=== PATIENT | female | born 1935 | race African-American/Black ===

== ENCOUNTER 2022-06-29 12:43 | Emergency (ER) | payer OTHER ==
[~2022-06-29] VITALS: Ht 157.5 cm; Wt 56.0 kg
[2022-06-29] MEDS ORDERED: LEFL10TA19 PO (12:50)
[2022-06-29] MEDS ORDERED: ONDANSETRON HCL 4MG/2ML INJ IV STA (13:06)
[2022-06-29] MEDS ORDERED: ACETAMINOPHEN 325MG TABLET PO STA (13:06)
[2022-06-29] MEDS ORDERED: SODIUM CHLORIDE 0.9% 1,000 ML IV ONE (13:15)
[2022-06-29 14:04] LABS: BASOPHILS % 1.1 % (0.0-2.0); EOSINOPHILS % 2.4 % (0.0-5.0); HEMATOCRIT. 29.8 % (36.0-48.0); HEMOGLOBIN. 9.8 g/dL (12.0-16.0); LYMPHOCYTES % 25.2 % (20.0-50.0); MEAN CORPUSCULAR HEMOGLOBIN 30.4 pg (28.0-32.0); MEAN CORPUSCULAR VOLUME 92.4 fL (81.0-99.0); MEAN PLATELET VOLUME 9.6 fl (7.4-10.4); MONOCYTES % 11.3 % (2.0-8.0); PLATELET 131 x1000/uL (130-400); RED BLOOD CELL COUNT 3.22 mill/uL (4.2-5.4); RED CELL DISTRIBUTION WIDTH 20.8 % (11.6-14.6)
[2022-06-29 14:11] LABS: CHLORIDE 116 mEq/L (98-107)
[2022-06-29 14:30] LABS: INR 1.2; PROTHROMBIN TIME 12.4 sec (9.6-11.0)
[2022-06-29] MEDS ORDERED: POTASSIUM CHLORIDE 20MEQ TABLET SR PO ONE (14:30)
[2022-06-29 15:24] LABS: CLARITY URINE CLOUDY (CLEAR); COLOR URINE YELLOW (YELLOW); KETONES URINE TRACE (NEGATIVE); LEUKOCYTE ESTERASE URINE 1+ (NEGATIVE); NITRITE URINE NEGATIVE (NEGATIVE); OCCULT BLOOD URINE NEGATIVE (NEGATIVE); PROTEIN URINE 1+ (NEGATIVE); SPECIFIC GRAVITY URINE 1.016 (1.005-1.030); UROBILINOGEN URINE 0.2 E.U./dL (0.2-1.0)
[2022-06-29 19:52] VITALS: BP 111/62
== END 2022-06-29 20:19 | disposition home or self-care (01) ==
LOC: ER 12:54
DX: R10.84 Generalized abdominal pain (principal); E16.2 Hypoglycemia, unspecified; R11.2 Nausea with vomiting, unspecified; Z86.73 Personal history of transient ischemic attack (TIA), and cerebral infarction without residual deficits; Z88.0 Allergy status to penicillin
CPT/HCPCS: 36415; 71045; 74176; 80053; 81003; 82962; 83605; 83690; 84484; 85025; 85610; 96361; 96374; 99285; J2405; J7030

== ENCOUNTER 2022-07-28 16:30 | Emergency (ER) | payer OTHER ==
[~2022-07-28] VITALS: Ht 162.6 cm; Wt 41.0 kg
[~2022-07-28 16:30] MED LIST: LEFL10TA19 PO
[2022-07-28] MEDS ORDERED: ACETAMINOPHEN 650MG SUPP PR STA (17:29)
[2022-07-28] MEDS ORDERED: SODIUM CHLORIDE 0.9% 1000ML BAG (SEPSIS BOLUS) IV ONE (17:30)
[2022-07-28] MEDS ORDERED: PIPERACILLIN/TAZ 3.375G PREMIX 50 ML IV ONE (17:30)
[2022-07-28] MEDS ORDERED: VANCOMYCIN 1G PREMIX 200 ML IV ONE (17:30)
[2022-07-28 18:01] LABS: BASOPHILS % 0.6 % (0.0-2.0); HEMOGLOBIN. 8.7 g/dL (12.0-16.0); MEAN CORPUSCULAR HEMOGLOBIN 31.1 pg (28.0-32.0); MEAN CORPUSCULAR VOLUME 93.5 fL (81.0-99.0); MEAN PLATELET VOLUME 9.6 fl (7.4-10.4); MONOCYTES % 8.3 % (2.0-8.0); NEUTROPHILS % 33.1 % (40.0-76.0); PLATELET 140 x1000/uL (130-400); RED BLOOD CELL COUNT 2.78 mill/uL (4.2-5.4); RED CELL DISTRIBUTION WIDTH 18.8 % (11.6-14.6)
[2022-07-28 18:11] LABS: CHLORIDE 111 mEq/L (98-107); INR 1.3; PROTHROMBIN TIME 13.7 sec (9.6-11.0)
[2022-07-28 21:10] LABS: CLARITY URINE CLEAR (CLEAR); COLOR URINE YELLOW (YELLOW); KETONES URINE TRACE (NEGATIVE); LEUKOCYTE ESTERASE URINE NEGATIVE (NEGATIVE); NITRITE URINE NEGATIVE (NEGATIVE); OCCULT BLOOD URINE NEGATIVE (NEGATIVE); PROTEIN URINE 1+ (NEGATIVE); SPECIFIC GRAVITY URINE 1.009 (1.005-1.030); UROBILINOGEN URINE 0.2 E.U./dL (0.2-1.0)
[2022-07-28] MEDS ORDERED: KCL 10MEQ/50ML PREMIX 100 ML IV SCH (22:30)
[2022-07-29 01:29] VITALS: BP 156/69
[2022-07-29] MEDS ORDERED: KCL 10MEQ/50ML PREMIX 100 ML IV SCH (02:30)
== END 2022-07-29 02:07 | disposition short-term general hospital (02) ==
LOC: ER 16:30 → EDBEDREQ 17:34 → ER 07-29 02:07 → CANBEDREQ 07-29 18:23
DX: E11.9 Type 2 diabetes mellitus without complications (principal); Z86.73 Personal history of transient ischemic attack (TIA), and cerebral infarction without residual deficits; R11.10 Vomiting, unspecified; Z20.822 Contact with and (suspected) exposure to COVID-19
CPT/HCPCS: 36415; 71045; 80053; 81003; 82962; 83605; 83690; 84484; 85025; 85610; 87040; 87426; 96360; 96361; 99285; C9803; J3480; J7030

== ENCOUNTER 2022-09-01 09:52 | Inpatient (IN) | payer OTHER ==
[~2022-09-01] VITALS: Ht 157.5 cm; Wt 67.1 kg
[2022-09-01] MEDS ORDERED: IOHEXOL-350 100 ML BOTTLE ONE (10:09)
[2022-09-01 11:32] LABS: BASOPHILS % 0.2 % (0.0-2.0); HEMATOCRIT. 23.3 % (36.0-48.0); LYMPHOCYTES % 8.2 % (20.0-50.0); MEAN CORPUSCULAR HEMOGLOBIN 31.1 pg (28.0-32.0); MEAN CORPUSCULAR VOLUME 91.2 fL (81.0-99.0); MEAN PLATELET VOLUME 8.9 fl (7.4-10.4); NEUTROPHILS % 84.6 % (40.0-76.0); PLATELET 177 x1000/uL (130-400); RED BLOOD CELL COUNT 2.56 mill/uL (4.2-5.4); RED CELL DISTRIBUTION WIDTH 18.8 % (11.6-14.6)
[2022-09-01 11:41] LABS: CHLORIDE 109 mEq/L (98-107)
[2022-09-01 11:50] LABS: ETHANOL BLOOD < 10 mg/dL
[2022-09-01] MEDS ORDERED: SODIUM CHLORIDE 0.9% 1,000 ML IV ONE ×2 (12:15→16:30)
[2022-09-01] MEDS ORDERED: CEFTRIAXONE 2 G PREMIX 50 ML IV ONE (12:15)
[2022-09-01] MEDS ORDERED: AZITHROMYCIN 500MG/250ML 250 ML IV NR (12:15)
[2022-09-01] MEDS ORDERED: CEFTRIAXONE 2 G in DEXTROSE 5% WATER 50 ML IV NR (12:30)
[2022-09-01] MEDS ORDERED: VANCOMYCIN 1G PREMIX 200 ML IV ONE (14:15)
[2022-09-01 15:54] LABS: CLARITY URINE CLOUDY (CLEAR); COLOR URINE YELLOW (YELLOW); KETONES URINE TRACE (NEGATIVE); LEUKOCYTE ESTERASE URINE NEGATIVE (NEGATIVE); NITRITE URINE NEGATIVE (NEGATIVE); OCCULT BLOOD URINE 2+ (NEGATIVE); PH URINE 6.5 (4.5-8.0); PROTEIN URINE NEGATIVE (NEGATIVE); SPECIFIC GRAVITY URINE 1.017 (1.005-1.030); UROBILINOGEN URINE 0.2 E.U./dL (0.2-1.0)
[2022-09-01 16:26] LABS: *AMPHETAMINES SCREEN URINE NEGATIVE (NEGATIVE); *BARBITURATES SCREEN URINE NEGATIVE (NEGATIVE); *BENZODIAZEPINES SCREEN URINE NEGATIVE (NEGATIVE); *COCAINE SCREEN URINE NEGATIVE (NEGATIVE); CANNABINOID URINE SCREEN PRESUMTIVE POSITIVE (NEGATIVE); METHADONE URINE SCREEN NEGATIVE (NEGATIVE); OPIATES URINE SCREEN PRESUMTIVE POSITIVE (NEGATIVE); PHENCYCLIDINE URINE SCREEN NEGATIVE (NEGATIVE)
[2022-09-01] MEDS ORDERED: GUAIFENESIN 200MG/10ML SUGAR FREE UDC PO PRN (16:45)
[2022-09-01] MEDS ORDERED: MAGNESIUM/ALUMINUM HYDROXIDE/SIMETHICONE 30ML UDC PO PRN (16:45)
[2022-09-01] MEDS ORDERED: IPRATROPIUM/ALBUTEROL 0.5-3(2.5)MG/3ML NEB HHN PRN (16:45)
[2022-09-01] MEDS ORDERED: DOCUSATE SODIUM 100MG CAPSULE PO PRN (16:45)
[2022-09-01] MEDS ORDERED: ONDANSETRON HCL 4MG/2ML INJ IV PRN (16:45)
[2022-09-01] MEDS ORDERED: ACETAMINOPHEN 325MG TABLET PO PRN ×2 (16:45)
[2022-09-01] MEDS ORDERED: IPRATROPIUM BROMIDE (0.02%) 0.5MG/2.5ML NEB HHN PRN (17:00)
[2022-09-01] MEDS ORDERED: ALBUTEROL (0.083%) 2.5MG/3ML NEB HHN PRN (17:00)
[2022-09-01] MEDS ORDERED: CEFEPIME 2,000 MG in DEXT 5% WATER 100 ML IV SCH (17:00)
[2022-09-01] MEDS ORDERED: CLONIDINE 0.1MG TABLET PO PRN (18:00)
[2022-09-01] MEDS ORDERED: NALOXONE HCL 0.4MG/ML VIAL IV PRN (18:00)
[2022-09-01] MEDS ORDERED: KCL 20MEQ/100ML PREMIX 100 ML IV NR (18:15)
[2022-09-01] MEDS ORDERED: VANCOMYCIN 750MG PREMIX 150 ML IV NR (18:30)
[2022-09-01 19:14] LABS: CREATINE KINASE 142 IU/L (26-192)
[2022-09-01 22:30] VITALS: BP 126/70
[2022-09-02] VITALS (12 sets, daily range): BP systolic 103–172; BP diastolic 63–93
[2022-09-02] MEDS: DEXT 5%/0.45% NACL 1000ML 1,000 ML IV SCH ×2 (02:38→17:35)
[2022-09-02 08:37] LABS: CREATINE KINASE MB FRACTION 4.2 ng/mL (0.5-3.6)
[2022-09-02] MEDS: PANTOPRAZOLE SODIUM 40 MG/VIAL IV SCH (08:38)
[2022-09-02] MEDS: AMLODIPINE 5MG TABLET PO SCH (08:38)
[2022-09-02] MEDS ORDERED: AZTREONAM 1 G in DEXTROSE 5% WATER 50 ML IV SCH (09:00)
[2022-09-02] MEDS: HYDROCODONE/ACETAMINOPHEN 5/325MG TABLET PO PRN ×2 (10:34→16:57)
[2022-09-02 11:21] LABS: HEMATOCRIT. 23.7 % (36.0-48.0); HEMOGLOBIN. 7.8 g/dL (12.0-16.0); MEAN CORPUSCULAR HEMOGLOBIN 31.2 pg (28.0-32.0); MEAN CORPUSCULAR VOLUME 94.1 fL (81.0-99.0); MEAN PLATELET VOLUME 8.1 fl (7.4-10.4); PLATELET 143 x1000/uL (130-400); RED BLOOD CELL COUNT 2.52 mill/uL (4.2-5.4); RED CELL DISTRIBUTION WIDTH 19.1 % (11.6-14.6)
[2022-09-02 11:31] LABS: T4 FREE 0.6 ng/dL (0.76-1.46)
[2022-09-02] MEDS ORDERED: DAPT500V17 IV (14:26)
[2022-09-02] MEDS ORDERED: METO5TAB94 PO (14:27)
[2022-09-02] MEDS ORDERED: PROT40 PO (14:27)
[2022-09-02] MEDS ORDERED: [UNRECOGNIZED DRUG - CODE] (14:27)
[2022-09-02] MEDS ORDERED: FOLI0.4T6 MT (14:27)
[2022-09-02] MEDS ORDERED: TERA5CAP4 MT (14:27)
[2022-09-02] MEDS ORDERED: GABA-529 PO (14:27)
[2022-09-02] MEDS ORDERED: ISOS40TA17 PO (14:27)
[2022-09-02] MEDS ORDERED: ATOR-2 PO (14:27)
[2022-09-02] MEDS ORDERED: HYDR25TA PO (14:27)
[2022-09-02 17:13] LABS: PLATELET ESTIMATE NORMAL
[2022-09-02] MEDS: AZTREONAM 1 G in DEXTROSE 5% WATER 50 ML IV SCH (23:03)
[2022-09-03] VITALS (14 sets, daily range): BP systolic 107–146; BP diastolic 56–87
[2022-09-03] MEDS ORDERED: DEXTROSE 50% WATER 50ML SYRINGE IV PRN (00:15)
[2022-09-03] MEDS ORDERED: AZITHROMYCIN 500 MG TABLET PO NR (05:30)
[2022-09-03 06:54] LABS: HEMOGLOBIN. 7.9 g/dL (12.0-16.0); MEAN CORPUSCULAR HEMOGLOBIN 30.7 pg (28.0-32.0); MEAN CORPUSCULAR VOLUME 97.2 fL (81.0-99.0); MEAN PLATELET VOLUME 7.9 fl (7.4-10.4); PLATELET 132 x1000/uL (130-400); RED BLOOD CELL COUNT 2.58 mill/uL (4.2-5.4); RED CELL DISTRIBUTION WIDTH 19.4 % (11.6-14.6)
[2022-09-03] MEDS: PANTOPRAZOLE SODIUM 40 MG/VIAL IV SCH (08:21)
[2022-09-03] MEDS: BLOOD SUGAR DIAGNOSTIC STRIP TEST SCH ×4 (08:22→21:00)
[2022-09-03] MEDS: DEXT 5%/0.45% NACL 1000ML 1,000 ML IV SCH ×2 (09:01→22:43)
[2022-09-03] MEDS ORDERED: LEVOTHYROXINE SODIUM 25MCG TABLET PO SCH (09:30)
[2022-09-03] MEDS: AMLODIPINE 5MG TABLET PO SCH (10:07)
[2022-09-03] MEDS: AZTREONAM 1 G in DEXTROSE 5% WATER 50 ML IV SCH (10:08)
[2022-09-03] MEDS ORDERED: LIDOCAINE HCL/PF 1% 10 MG/ML 5ML VIAL ONE (13:06)
[2022-09-03] MEDS ORDERED: LORAZEPAM 2MG/ML CPJ IV PRN (13:45)
[2022-09-03] MEDS ORDERED: KETOROLAC 15MG/ML VIAL IV PRN (16:15)
[2022-09-03] MEDS ORDERED: HYDROMORPHONE HCL/PF 2MG/ML CPJ IV PRN (16:30)
[2022-09-03 17:05] LABS: PLATELET ESTIMATE NORMAL
[2022-09-03] MEDS ORDERED: AZTREONAM 2GM in DEXTROSE 5% WATER 100ML IV SCH (22:00)
[2022-09-04] MEDS ORDERED: AZITHROMYCIN 250 MG TABLET PO SCH (09:00)
== END 2022-09-04 03:48 | disposition short-term general hospital (02) | DRG 871 ==
LOC: ER 10:07 → 5EST 16:25 → EDBEDREQ 16:41 → EDBEDREQTM 16:41 → ER 22:10
PROVIDERS: ADMIT Hospitalist; ATTEND Hospitalist
PROC: 4A00X4Z Measurement of Central Nervous Electrical Activity, External Approach (ICD-10-PCS; 2022-09-02)
PROC: 02HV33Z Insertion of Infusion Device into Superior Vena Cava, Percutaneous Approach (ICD-10-PCS; principal; 2022-09-03)
PROC: B548ZZA Ultrasonography of Superior Vena Cava, Guidance (ICD-10-PCS; 2022-09-03)
DX: A41.9 Sepsis, unspecified organism (principal); E43 Unspecified severe protein-calorie malnutrition; I63.9 Cerebral infarction, unspecified; J18.9 Pneumonia, unspecified organism; N39.0 Urinary tract infection, site not specified; G93.40 Encephalopathy, unspecified; N17.9 Acute kidney failure, unspecified; G91.9 Hydrocephalus, unspecified; R47.01 Aphasia; M19.90 Unspecified osteoarthritis, unspecified site; L89.159 Pressure ulcer of sacral region, unspecified stage; N18.9 Chronic kidney disease, unspecified; E11.649 Type 2 diabetes mellitus with hypoglycemia without coma; E87.6 Hypokalemia; Z20.822 Contact with and (suspected) exposure to COVID-19; I12.9 Hypertensive chronic kidney disease with stage 1 through stage 4 chronic kidney disease, or unspecified chronic kidney disease; R74.01 Elevation of levels of liver transaminase levels; D64.9 Anemia, unspecified; E86.9 Volume depletion, unspecified; E03.9 Hypothyroidism, unspecified; E11.22 Type 2 diabetes mellitus with diabetic chronic kidney disease; Z88.0 Allergy status to penicillin; Z68.27 Body mass index [BMI] 27.0-27.9, adult
CPT/HCPCS: 36415; 36573; 70496; 70498; 71045; 74018; 76770; 80048; 80053; 80061; 80202; 80305; 80320; 81003; 82550; 82553; 82570; 82962; 83036; 83605; 84145; 84300; 84439; 84443; 84484; 85025; 87426; 92610; 93005; 93306; 95816; 97162; 99285; C1725; C9113; C9803; J0456; J0692; J0696; J2060; J3370; J3480; J3490; J7060; Q9967; G0480